=== PATIENT | male | born 1985 | race Caucasian/White ===

== ENCOUNTER 2017-06-25 22:29 | Inpatient (IN) | payer BC ==
[~2017-06-25] VITALS: Ht 187.9 cm; Wt 115.4 kg
--- NOTE | ~2017-06-25 | CON ---
[place], [place] REPORT OF CONSULTATION NAME: RASHID BRUMFIELD UNIT #: [id number] ROOM: 425 DOCTOR: EVAN PAVON,LINDA BIRTHDATE: [birth year] DOS: 06/26/2017 HISTORY OF PRESENT ILLNESS: The patient has presented with 4 days of aggressive diarrhea. CT scan of the abdomen was suggestive of acute colitis, diffuse colonic wall thickening associated with mesenteric hyperemia compatible with colitis. His lactic acid was 0.8. Urinalysis was unremarkable. CBC white blood cell 8, H and H of 13 and 37. Comprehensive metabolic panel, electrolyte balanced. Liver function tests, GOT and GPT 46 and 83. He drinks a case of beer per week. Basic metabolic panel, GFR greater than 60. PAST MEDICAL HISTORY: No medications at home. PAST SURGICAL HISTORY: Abscess of the groin; hydrocele, right-sided; appendectomy. SOCIAL HISTORY: Past smoker and consumes alcohol, between through 6 packs to the case on weekend. FAMILY HISTORY: Noncontributory. ALLERGIES: To no known medications. MEDICATIONS: Medication list reviewed. At the present time on sulfa. REVIEW OF SYSTEMS: HEENT: Denies double vision, blurred vision. RESPIRATORY: Denies acute shortness of breath. CARDIOVASCULAR: Denies acute chest pain. DIGESTIVE SYSTEM: Nausea, epigastric distress, diarrhea, colitis. PHYSICAL EXAMINATION: VITAL SIGNS: Stable. HEENT: Head normocephalic, nontraumatic. Mouth and buccal mucosa benign. NECK: Supple, no thyromegaly, no cervical lymphadenopathy. CHEST: Symmetric anatomy, equal expansion. No wheeze, no rhonchi. HEART: Normal sinus rhythm, no gallop, no murmur. ABDOMEN: Soft. No hepato-organomegaly. Bowel sounds present. No pulsatile mass. EXTREMITIES: No cyanosis, no pedal edema. NEUROLOGIC: Alert, oriented to time, place and person. LABORATORY DATA: Reviewed, records reviewed, data reviewed. PLAN AND DISCUSSION: Elevated GOT, GPT. IMPRESSION: Ruling out secondary to ETOH, ruling out secondary to hepatitis C with numerous tattooing, history of Crohn's in mother and he is concerned with the diarrhea episode and colitis on CT scan. PLAN AND DISCUSSION: Colonoscopic evaluation in view of the fact that concerned [place], [place] REPORT OF CONSULTATION NAME: RASHID BRUMFIELD UNIT #: [id number] ROOM: 425 DOCTOR: EVAN PAVON,LINDA BIRTHDATE: [birth year] about ischemic insult. Labs reviewed. Records reviewed. Hemoglobin A1c has been 7.5. Electrolytes are balanced. Folate and B12 are normal. INR was 0.9. CT scan with the reviewed. Colonoscopic evaluation and he has endoscopy for his epigastric pain. LINDA GORDON MD CM:CONSTR:REPORT OF CONSULTATION 1229 06/27/17 0237 interface
--- NOTE | ~2017-06-25 | O ---
[place], [place] OPERATIVE NOTE NAME: RASHID BRUMFIELD UNIT #: [id number] ROOM: 425 DOCTOR: LINDA GORDON MD BIRTHDATE: [birth year] DOS: GASTROENTEROSCOPIC REPORT INDICATIONS: A 31-year-old patient who has presented with chief complaint of colitis concerns and diarrhea concerns. PROCEDURE: Today's procedure part of investigation is colonoscopy plus biopsy. PREMEDICATION: Versed and Diprivan. SCOPE: Olympus forwarding colonoscope 10L video. REPORT: After putting the patient in the left lateral position and after application of lubricant to the scope, the scope was introduced; thereafter, under direct visualization, I advanced through the length of colon without difficulty. Evidence of pancolitis, nonspecific. It is not a pattern of ulcerative colitis. It is not a pattern of Crohn's disease photographed. Multiple biopsies obtained. The patient extubated, tolerated the procedure well. IMPRESSION: Nonspecific pancolitis, status post biopsy. PLAN AND DISCUSSION: We are going to continue with IV Flagyl. We are going to discontinue tomorrow. We are going to start him on sulfasalazine 500 mg 2 tablets b.i.d. plus folic acid 1 mg daily. Full liquid diet and allowing other laboratory results to be available to us as well as pathology, clinical reassessment. LINDA GORDON MD CM:OPRECORD:OPERATIVE NOTE 1253 [id number] LINDA GORDON MD 06/26/17 1352 interface
--- NOTE | ~2017-06-25 | O ---
[place], [place] OPERATIVE NOTE NAME: RASHID BRUMFIELD UNIT #: [id number] ROOM: 425 DOCTOR: LINDA GORDON MD BIRTHDATE: [birth year] DOS: GASTROENTEROSCOPIC REPORT HISTORY OF PRESENT ILLNESS: A 31-year-old patient who has presented with chief complaint of abdominal pain, epigastric distress, , diarrhea, cramp for [address] scan consistent with colitis. PROCEDURE: Today's procedure part of investigation is panendoscopy and colonoscopy. PREMEDICATION: Versed and Diprivan. SCOPE: Olympus forward-viewing gastroscope Q10 video. REPORT: After putting the patient in the left lateral position and after application of lubricant to the scope, the scope was introduced. Thereafter, under direct visualization, I advanced through the length of esophagus without difficulty. 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 Gastric pouch was entered. Gastritis seen. Duodenal bulb, second and third part within normal limit. The patient extubated, tolerated the procedure well. 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 PLAN AND DISCUSSION: I am going to proceed with panendoscopy with colonoscopy. LINDA GORDON MD CM:OPRECORD:OPERATIVE NOTE 1253 1345 LINDA GORDON MD 06/26/17 1346 interface
[~2017-06-25 22:29] MED LIST: BACTRIM DS 8001 TA1 PO; CLINDAMYCIN HC300 MG PO; CYCLOBENZAPRINE10 MG PO; KEFLEX500 M1 PO; KEFLEX500 MG PO; MOTRIN800 MG PO; NAPROSYN500 MG PO; NKHM; PERCOCET 325 MG1 TA2 PO; PERCOCET 325 MG1 TA5 PO; ULTRAM50 MG PO; VITAMIN D50000 I3 PO
[2017-06-25 23:02] VITALS: BP 165/92
[2017-06-25 23:46] LABS: BILIRUBIN 1+ (NEGATIVE); BLOOD NEGATIVE (NEGATIVE); CLARITY CLEAR (CLEAR); COLOR YELLOW (YELLOW); GLUCOSE TRACE (NEGATIVE); KETONE NEGATIVE (NEGATIVE); LEUKO ESTERASE NEGATIVE (NEGATIVE); NITRITE NEGATIVE (NEGATIVE); PROTEIN NEGATIVE (NEGATIVE); UROBILINOGEN 0.2 E.U./dl (0.2-1.0)
[2017-06-25 23:54] LABS: BASO % 0.5 % (0.0-1.0); EOS # 0.3 10*3/uL (0.0-0.4); EOS % 3.3 % (1.0-4.0); HEMATOCRIT 37.9 % (42.0-52.0); HEMOGLOBIN 13.7 g/dl (14.0-18.0); IG # 0.2 10*3/uL (0.0-0.1); LYMPH # 2.5 10*3/uL (1.3-4.4); LYMPH % 30.7 % (27.0-41.0); MEAN CORPUSCULAR HGB 30.7 pg (27.0-31.0); MEAN CORPUSCULAR HGB CONC 36.1 g/dl (33.0-37.0); MEAN PLATELET VOLUME 9.3 fl (9.6-12.3); MONO # 0.5 10*3/uL (0.1-1.0); MONO % 6.2 % (3.0-9.0); NEUT # 4.8 10*3/uL (2.3-7.9); NEUT % 57.5 % (47.0-73.0); PLATELET COUNT AUTOMATED 262 10*3/uL (130-400); RED BLOOD COUNT 4.46 10*6/uL (4.50-5.90); RED CELL DISTRI WIDTH 12.3 % (0-14.5); WHITE BLOOD COUNT 8.3 10*3/uL (4.8-10.8)
[2017-06-25 23:55] LABS: BACTERIA TRACE; RBC 0-2 rbc/hpf (0-2); URINE REFLEX COMMENT NO (NO)
[2017-06-26] VITALS (8 sets, daily range): BP systolic 131–157; BP diastolic 67–97
[2017-06-26 00:01] LABS: ALBUMIN 3.2 gm/dl (3.1-4.5); ALKALINE PHOSPHATASE 100 U/L (45-117); BILIRUBIN, TOTAL 0.4 mg/dl (0.2-1.0); BUN 6 mg/dl (7-24); C-REACTIVE PROTEIN 1.29 MG/DL (0-0.3); CARBON DIOXIDE 27 mmol/L (21-32); CHLORIDE 106 mmol/L (98-107); EST GLOM FILT AFRICAN AMERICAN > 60 ml/min; GLUCOSE 174 mg/dL (65-99); MAGNESIUM 1.7 mg/dL (1.5-2.1); POTASSIUM 3.7 mmol/L (3.5-5.1); SGOT/AST 46 IU/L (3-35); SGPT/ALT 83 U/L (12-78); SODIUM 137 mmol/L (136-145); TOTAL PROTEIN 6.9 gm/dL (6.4-8.2)
[2017-06-26 06:13] LABS: BASO % 0.4 % (0.0-1.0); EOS # 0.3 10*3/uL (0.0-0.4); EOS % 3.9 % (1.0-4.0); HEMATOCRIT 38.5 % (42.0-52.0); IG # 0.2 10*3/uL (0.0-0.1); LYMPH # 2.6 10*3/uL (1.3-4.4); LYMPH % 33.9 % (27.0-41.0); MEAN CELL VOLUME 86.5 fl (80.0-94.0); MEAN CORPUSCULAR HGB 31.5 pg (27.0-31.0); MEAN CORPUSCULAR HGB CONC 36.4 g/dl (33.0-37.0); MEAN PLATELET VOLUME 9.4 fl (9.6-12.3); MONO # 0.5 10*3/uL (0.1-1.0); MONO % 6.1 % (3.0-9.0); NEUT # 4.1 10*3/uL (2.3-7.9); NEUT % 53.7 % (47.0-73.0); PLATELET COUNT AUTOMATED 267 10*3/uL (130-400); RED BLOOD COUNT 4.45 10*6/uL (4.50-5.90); RED CELL DISTRI WIDTH 12.3 % (0-14.5); WHITE BLOOD COUNT 7.6 10*3/uL (4.8-10.8)
[2017-06-26 06:36] LABS: HEMOGLOBIN A1c 7.5 % (4.8-5.6)
[2017-06-26 06:46] LABS: BUN 8 mg/dl (7-24); CARBON DIOXIDE 28 mmol/L (21-32); CHLORIDE 106 mmol/L (98-107); CHOLESTEROL 124 mg/dL (<200); EST GLOM FILT AFRICAN AMERICAN > 60 ml/min; GLUCOSE 134 mg/dL (65-99); HDL CHOLESTEROL 34 mg/dl (40-60); LDL CHOLESTEROL 56 mg/dL (9-159); POTASSIUM 3.7 mmol/L (3.5-5.1); SODIUM 139 mmol/L (136-145); TRIGLYCERIDES 170 mg/dl (<150); VLDL CHOLESTEROL 34 mg/dL (6-40)
[2017-06-26 06:52] LABS: INTERNATIONAL NORM RATIO 0.9 (2.0-3.5)
[2017-06-26 07:31] LABS: VITAMIN D, 25-HYDROXY 31.1 ng/mL (30-100)
[2017-06-26 07:32] LABS: FOLIC ACID 8.58 ng/mL (>5.38)
[2017-06-27] VITALS: BP 156/77
[2017-06-27 05:51] LABS: ALBUMIN 3.1 gm/dl (3.1-4.5); ALKALINE PHOSPHATASE 88 U/L (45-117); BILIRUBIN, TOTAL 0.5 mg/dl (0.2-1.0); BUN 6 mg/dl (7-24); CARBON DIOXIDE 31 mmol/L (21-32); CHLORIDE 104 mmol/L (98-107); EST GLOM FILT AFRICAN AMERICAN > 60 ml/min; GLUCOSE 132 mg/dL (65-99); POTASSIUM 4.1 mmol/L (3.5-5.1); SGOT/AST 47 IU/L (3-35); SGPT/ALT 77 U/L (12-78); SODIUM 139 mmol/L (136-145); TOTAL PROTEIN 6.6 gm/dL (6.4-8.2)
[2017-06-27 06:09] LABS: HEMATOCRIT 37.5 % (42.0-52.0); HEMOGLOBIN 13.5 g/dl (14.0-18.0); MEAN CORPUSCULAR HGB 31.3 pg (27.0-31.0); MEAN PLATELET VOLUME 9.5 fl (9.6-12.3); PLATELET COUNT AUTOMATED 269 10*3/uL (130-400); RED BLOOD COUNT 4.31 10*6/uL (4.50-5.90); RED CELL DISTRI WIDTH 12.2 % (0-14.5); WHITE BLOOD COUNT 6.6 10*3/uL (4.8-10.8)
[2017-06-27 06:48] LABS: BASOPHIL # 0.1 10*3/uL (0-0.1); BASOPHILS 1 % (0-1); EOSINOPHIL # 0.3 10*3/uL (0-0.4); EOSINOPHILS 5 % (1-4); LYMPHOCYTE # 1.8 10*3/uL (1.3-4.4); METAMYELOCYTES 2 % (0-0); MONOCYTE # 0.2 10*3/uL (0.1-1.0); MYELOCYTES 1 % (0-0); NEUTROPHILS 60 % (47-73); TOTAL CELLS COUNTED 100 #CELLS
[2017-06-27 06:49] LABS: PLATELET SUFFICIENCY NORMAL (NORMAL); POLYCHROMASIA SLIGHT
[2017-06-27 08:00] VITALS: BP 140/90
[2017-06-27 12:00] VITALS: BP 153/74
[2017-06-27 16:00] VITALS: BP 157/79
[2017-06-27 20:00] VITALS: BP 158/85
[2017-06-28] VITALS: BP 152/84
[2017-06-28 05:27] LABS: ALBUMIN 3.1 gm/dl (3.1-4.5); BUN 9 mg/dl (7-24); CARBON DIOXIDE 28 mmol/L (21-32); CHLORIDE 104 mmol/L (98-107); EST GLOM FILT AFRICAN AMERICAN > 60 ml/min; GLUCOSE 173 mg/dL (65-99); POTASSIUM 3.5 mmol/L (3.5-5.1); SGOT/AST 43 IU/L (3-35); SGPT/ALT 78 U/L (12-78); SODIUM 139 mmol/L (136-145)
[2017-06-28 05:29] LABS: ALKALINE PHOSPHATASE 114 U/L (45-117); BILIRUBIN, TOTAL 0.3 mg/dl (0.2-1.0); TOTAL PROTEIN 6.6 gm/dL (6.4-8.2)
[2017-06-28 05:52] LABS: HEMATOCRIT 37.2 % (42.0-52.0); HEMOGLOBIN 13.6 g/dl (14.0-18.0); MEAN CELL VOLUME 85.9 fl (80.0-94.0); MEAN CORPUSCULAR HGB 31.4 pg (27.0-31.0); MEAN CORPUSCULAR HGB CONC 36.6 g/dl (33.0-37.0); MEAN PLATELET VOLUME 9.4 fl (9.6-12.3); NUCLEATED RED BLOOD CELL 0.2 % (0.0-0.0); PLATELET COUNT AUTOMATED 294 10*3/uL (130-400); RED BLOOD COUNT 4.33 10*6/uL (4.50-5.90); RED CELL DISTRI WIDTH 12.2 % (0-14.5); WHITE BLOOD COUNT 8.2 10*3/uL (4.8-10.8)
[2017-06-28 06:52] LABS: ATYPICAL LYMPHS 1 % (0-0); BASOPHIL # 0.1 10*3/uL (0-0.1); BASOPHILS 1 % (0-1); EOSINOPHIL # 0.1 10*3/uL (0-0.4); EOSINOPHILS 1 % (1-4); LYMPHOCYTE # 3.1 10*3/uL (1.3-4.4); METAMYELOCYTES 1 % (0-0); MONOCYTE # 0.1 10*3/uL (0.1-1.0); NEUTROPHIL # 4.8 10*3/uL (2.3-7.9); NEUTROPHILS 58 % (47-73); PLATELET SUFFICIENCY NORMAL (NORMAL); TOTAL CELLS COUNTED 100 #CELLS
[2017-06-28 08:00] VITALS: BP 151/90
[2017-06-28] MEDS ORDERED: NATURE'S BLEND F1 MG PO (09:59)
[2017-06-28] MEDS ORDERED: METRONIDAZOLE500 M1 PO (09:59)
[2017-06-28] MEDS ORDERED: SULFASALAZINE500 M1 PO (09:59)
== END 2017-06-28 11:20 | disposition home or self-care (01) | DRG 392 ==
LOC: ED 22:29 → 4E 06-26 02:53 → EDHOLD 06-26 02:53 → 4E 06-26 03:12
PROVIDERS: Emergency Medicine Emergency Medical Services; Internal Medicine; Internal Medicine Nephrology
PROC: 0DB38ZX Excision of Lower Esophagus, Via Natural or Artificial Opening Endoscopic, Diagnostic (ICD-10-PCS; principal; 2017-06-26)
PROC: 0DB68ZX Excision of Stomach, Via Natural or Artificial Opening Endoscopic, Diagnostic (ICD-10-PCS; principal; 2017-06-26)
PROC: 0DBE8ZX Excision of Large Intestine, Via Natural or Artificial Opening Endoscopic, Diagnostic (ICD-10-PCS; principal; 2017-06-26)
DX: K52.9 Noninfective gastroenteritis and colitis, unspecified (principal); E44.0 Moderate protein-calorie malnutrition; K51.00 Ulcerative (chronic) pancolitis without complications; R74.0 Nonspecific elevation of levels of transaminase and lactic acid dehydrogenase [LDH]; D64.9 Anemia, unspecified; E11.65 Type 2 diabetes mellitus with hyperglycemia; E66.09 Other obesity due to excess calories; Z72.89 Other problems related to lifestyle; Z68.32 Body mass index [BMI] 32.0-32.9, adult; Z90.49 Acquired absence of other specified parts of digestive tract; Z87.891 Personal history of nicotine dependence

== ENCOUNTER 2018-04-18 19:33 | Emergency (ER) | payer SELFPAY ==
[~2018-04-18] VITALS: Ht 187.9 cm; Wt 108.9 kg
[~2018-04-18 19:33] MED LIST changes: +METRONIDAZOLE500 M1 PO; +NATURE'S BLEND F1 MG PO; +SULFASALAZINE500 M1 PO
[2018-04-18] MEDS ORDERED: SEPTDS PO (20:26)
[2018-04-18] MEDS ORDERED: DOXYCYCLINE100 M3 PO (20:26)
== END 2018-04-18 20:32 | disposition home or self-care (01) ==
LOC: ED 19:33
DX: L02.31 Cutaneous abscess of buttock (principal); L02.415 Cutaneous abscess of right lower limb; E11.65 Type 2 diabetes mellitus with hyperglycemia; Z90.49 Acquired absence of other specified parts of digestive tract; Z79.899 Other long term (current) drug therapy

== ENCOUNTER 2020-06-21 14:14 | Emergency (ER) | payer BC, MEDICAID ==
[~2020-06-21] VITALS: Ht 187.9 cm; Wt 108.9 kg
[~2020-06-21 14:14] MED LIST changes: +DOXYCYCLINE100 M3 PO; +SEPTDS PO
[2020-06-21 14:49] LABS: BASO # 0.1 10*3/uL (0.0-0.1); BASO % 0.7 % (0.0-1.0); EOS # 0.3 10*3/uL (0.0-0.4); HEMATOCRIT 45.6 % (42.0-52.0); LYMPH # 2.7 10*3/uL (1.3-4.4); LYMPH % 29.6 % (27.0-41.0); MEAN CELL VOLUME 84.6 fl (80.0-94.0); MEAN CORPUSCULAR HGB CONC 36.6 g/dl (33.0-37.0); MEAN PLATELET VOLUME 9.4 fl (9.6-12.3); MONO # 0.5 10*3/uL (0.1-1.0); MONO % 5.5 % (3.0-9.0); NEUT # 5.6 10*3/uL (2.3-7.9); NEUT % 60.8 % (47.0-73.0); PLATELET COUNT AUTOMATED 264 10*3/uL (130-400); RED BLOOD COUNT 5.39 10*6/uL (4.50-5.90); RED CELL DISTRI WIDTH 12.1 % (0-14.5); WHITE BLOOD COUNT 9.2 10*3/uL (4.8-10.8)
[2020-06-21 15:06] LABS: ALBUMIN 3.9 gm/dl (3.1-4.5); ALKALINE PHOSPHATASE 126 U/L (45-117); BUN 16 mg/dl (7-24); CHLORIDE 99 mmol/L (98-107); CREATININE 0.98 mg/dL (0.70-1.30); POTASSIUM 4.1 mmol/L (3.5-5.1); SGOT/AST 74 IU/L (3-35); SGPT/ALT 159 U/L (12-78); SODIUM 133 mmol/L (136-145)
[2020-06-21] MEDS ORDERED: GLUCOPHAGE500 M1 PO (16:46)
== END 2020-06-21 16:53 | disposition home or self-care (01) ==
LOC: ED 14:14
PROVIDERS: Emergency Medicine
DX: E11.9 Type 2 diabetes mellitus without complications (principal); J45.909 Unspecified asthma, uncomplicated; K21.9 Gastro-esophageal reflux disease without esophagitis; Z88.8 Allergy status to other drugs, medicaments and biological substances; Z90.49 Acquired absence of other specified parts of digestive tract

== ENCOUNTER → 2020-11-15 | Outpatient (CLI) | payer OTHER ==
[~2020-11-15] MED LIST changes: +GLUCOPHAGE500 M1 PO
[2020-11-15 15:03] LABS: BUN 11 mg/dl (7-24); CHLORIDE 98 mmol/L (98-107); CHOLESTEROL 194 mg/dL (<200); CREATININE 1.02 mg/dL (0.70-1.30); HDL CHOLESTEROL 41 mg/dl (40-60); LDL CHOLESTEROL 78 mg/dL (9-159); SODIUM 132 mmol/L (136-145); TRIGLYCERIDES 376 mg/dl (<150); VLDL CHOLESTEROL 75 mg/dL (6-40)
== END | disposition home or self-care (01) ==
LOC: LAB 13:33
PROVIDERS: ATTEND Internal Medicine
DX: E11.9 Type 2 diabetes mellitus without complications (principal)

== ENCOUNTER 2021-03-26 00:21 | Emergency (ER) | payer BC, OTHER ==
[2021-03-26 01:06] LABS: URINE AMPHETAMINES < 1000 (1000ng/ml); URINE BARBITURATES < 200 (200ng/ml); URINE BENZODIAZEPINES < 200 (200ng/ml); URINE CANNABINOIDS (THC) < 50 (50ng/ml); URINE COCAINE < 300 (300ng/ml); URINE METHADONE < 300 (300ng/ml); URINE OPIATES < 300 (300ng/ml)
[2021-03-26 01:07] LABS: URINE PHENCYCLIDINE < 25 (25ng/ml)
== END 2021-03-26 01:35 | disposition home or self-care (01) ==
LOC: ED 00:21
PROVIDERS: Emergency Medicine
DX: Z02.83 Encounter for blood-alcohol and blood-drug test (principal); E11.9 Type 2 diabetes mellitus without complications; E66.9 Obesity, unspecified; E44.0 Moderate protein-calorie malnutrition; F17.200 Nicotine dependence, unspecified, uncomplicated; Z79.2 Long term (current) use of antibiotics; Z79.899 Other long term (current) drug therapy; Z04.9 Encounter for examination and observation for unspecified reason

== ENCOUNTER → 2022-01-18 | Outpatient (CLI) | payer BC, OTHER | END | disposition home or self-care (01) | LOC: RAD 10:59 | PROVIDERS: ATTEND Internal Medicine | DX: M25.512 Pain in left shoulder (principal) ==

== ENCOUNTER → 2022-03-07 | Outpatient (CLI) | payer BC, OTHER | END | disposition home or self-care (01) | LOC: MRI 08:57 | PROVIDERS: ATTEND Orthopaedic Surgery | DX: M75.102 Unspecified rotator cuff tear or rupture of left shoulder, not specified as traumatic (principal); M75.52 Bursitis of left shoulder ==

== ENCOUNTER 2022-05-16 14:21 | Emergency (ER) | payer BC, OTHER ==
[~2022-05-16] VITALS: Ht 187.9 cm; Wt 111.1 kg
[2022-05-16 15:55] LABS: BASO # 0.1 10*3/uL (0.0-0.1); BASO % 0.6 % (0.0-1.0); EOS # 0.2 10*3/uL (0.0-0.4); EOS % 2.2 % (1.0-4.0); HEMATOCRIT 46.3 % (42.0-52.0); LYMPH # 2.2 10*3/uL (1.3-4.4); LYMPH % 22.1 % (27.0-41.0); MEAN CELL VOLUME 86.5 fl (80.0-94.0); MEAN CORPUSCULAR HGB 31.2 pg (27.0-31.0); MEAN CORPUSCULAR HGB CONC 36.1 g/dl (33.0-37.0); MEAN PLATELET VOLUME 9.5 fl (9.6-12.3); MONO # 0.4 10*3/uL (0.1-1.0); MONO % 4.2 % (3.0-9.0); NEUT # 6.9 10*3/uL (2.3-7.9); NEUT % 70.6 % (47.0-73.0); PLATELET COUNT AUTOMATED 302 10*3/uL (130-400); RED BLOOD COUNT 5.35 10*6/uL (4.50-5.90); RED CELL DISTRI WIDTH 12.3 % (0-14.5); WHITE BLOOD COUNT 9.8 10*3/uL (4.8-10.8)
[2022-05-16 16:11] LABS: ALKALINE PHOSPHATASE 114 U/L (45-117); BUN 12 mg/dl (7-24); CHLORIDE 105 mmol/L (98-107); CREATININE 0.86 mg/dL (0.70-1.30); LIPASE 123 U/L (73-393); POTASSIUM 4.2 mmol/L (3.5-5.1); SGOT/AST 35 IU/L (3-35); SGPT/ALT 69 U/L (12-78); SODIUM 136 mmol/L (136-145); TOTAL PROTEIN 7.3 gm/dL (6.4-8.2)
[2022-05-16 16:17] LABS: ACT PARTIAL THROMBO TIME 28.3 SECONDS (20.0-32.1); INTERNATIONAL NORM RATIO 0.9 (2.0-3.5)
== END 2022-05-16 18:42 | disposition home or self-care (01) ==
LOC: ED 14:21
PROVIDERS: Emergency Medicine
DX: R07.9 Chest pain, unspecified (principal); F17.200 Nicotine dependence, unspecified, uncomplicated; Z90.49 Acquired absence of other specified parts of digestive tract